=== PATIENT | male | born 1945 | race Caucasian/White ===

== ENCOUNTER 2024-03-26 12:37 | Observation (INO) ==
--- NOTE | 2024-03-26 13:15 | Emergency Department Note ---
HPI - Dizziness General Chief Complaint: Dizziness Stated Complaint: DIZZY, FALL Time Seen by Provider: 03/26/24 12:59 Source: patient and family Mode of arrival: walk-in Limitations: no limitations History of Present Illness HPI Narrative: This is a 78 year old male patient that presents to the ER with c/o feeling room spinning dizzy since yesterday. Patient states movement makes the dizziness worse. Patient denies any chest pain, SOB, abdominal pain, back pain, fever, chills, numbness,tingling, weakness or N/V. patient states he fell yesterday from the dizziness and his neck has been painful since. MD elicited complaint: Reports dizziness Onset (ago): hour(s) (24) Exacerbating factors: Reports movement/ambulation Relieving factors: Reports remaining still Associated symptoms: Reports denies other symptoms Related Data Home Medications Medication Instructions Recorded Confirmed losartan 50 mg tablet 50 mg PO DAILY 03/26/24 03/26/24 Allergies Allergy/AdvReac Type Severity Reaction Status Date / Time No Known Drug Allergies Allergy Verified 03/26/24 13:00 Review of Systems Status of ROS 10 or more systems reviewed and unremark able except as noted in history and below Constitutional Denies: fever, chills, change in weight, fatigue, malaise or night sweats Eyes Denies: change in vision, blurry vision, blind spots or light sensitivity Ears, nose, mouth, and throat Denies: throat pain, neck pain, throat swelling, difficulty swallowing or hoarseness Cardiovascular Reports: lightheadedness; Denies: chest pain, palpitations, edema, swelling of feet/ankles, shortness of breath when lying down or leg pain with exertion Respiratory Denies: shortness of breath, cough, wheezing, stridor or pain on inspiration Gastrointestinal Denies: abdominal pain, nausea, vomiting, coffee grounds in vomit, heartburn or diarrhea Genitourinary Denies: painful urination, urinary frequency, urinary urgency, blood in urine or genital pain Musculoskeletal Reports: neck pain; Denies: back pain, extremity pain, extremity swelling or joint pain Integumentary/Breast Denies: rash, itching, redness, skin pain, skin tenderness or skin swelling Neurological Reports: dizziness and vertigo; Denies: headache, numbness in extremities, weakness in extremities, lack of coordination, confusion, behavioral changes, slurred speech or difficulty communicating thoughts Psychiatric Denies: anxiety, mood swings, panic attacks or change in sleep pattern Endocrine Denies: excessive urination, excessive thirst, fatigue or cold intolerance Hematologic/Lymphatic Denies: easy bruising or easy bleeding Allergic/Immunologic Denies: hives, throat swelling, tongue swelling or facial swelling [facility] Medical History (Updated 03/26/24 @ 13:04 by Beverly Hernandez RN) BPH (benign prostatic hyperplasia) HTN (hypertension) Surgical History (Updated 03/26/24 @ 13:04 by Beverly Hernandez RN) 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 Non-prescribed substance use: denies use Exam Constitutional: normal general appearance and no apparent distress Vital Signs - 24 hr 03/26/24 12:50 03/26/24 13:10 03/26/24 13:13 Temperature 98.6 F Pulse Rate 58 L 68 65 Respiratory Rate 16 Blood Pressure 142/76 169/96 181/89 Pulse Oximetry 94 L Oxygen Delivery Me thod Room Air 03/26/24 13:16 03/26/24 15:30 Temperature Pulse Rate 71 60 Respiratory Rate 16 Blood Pressure 178/87 180/80 Pulse Oximetry 97 Oxygen Delivery Me thod Room Air HENMT: normocephalic, head/scalp atraumatic, hearing grossly normal bilaterally, external ears normal, nasal mucous membranes normal, external nose normal, oral mucous membranes normal and oropharynx normal Eyes: PERRL, EOMs intact bilaterally, conjunctivae normal and no scleral icterus Neck/C-Spine: visual inspection normal, trachea midline, cervical spine tenderness noted, cervical full ROM noted, supple, no meningeal signs and thyroid normal soft tissue tenderness posterior neck Lymph: no lymphadenopathy noted Chest: inspection of chest normal Respiratory: breath sounds equal bilaterally, normal respiratory effort, clear to auscultation bilaterally, no wheezes, no rales, no retractions and no use of accessory muscles Cardiovascular: normal heart rate noted, regular rhythm noted, no gallop, no rub, no murmur, no JVD, no clicks, peripheral pulses 2+ throughout and no additional abnormal heart sounds Gastrointestinal: abdomen normal to inspection, abdomen soft to palpation, nontender to palpation, nontender to percussion, nondistended, normoactive bowel sounds, no hepatosplenomegaly, no masses, no pulsatile mass and no hernia Genitourinary: no CVA tenderness Back/Pelvis: spine normal to inspection Extremities: normal to inspection, normal to palpation, no tenderness, full ROM, no joint enlargement and no deformity Neurology: 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 VSS , no s/s of acute distress noted Vital Signs Vital signs: Vital Signs Temperature 98.6 F 03/26/24 12:50 Pulse Rate 58 L 03/26/24 12:50 Respiratory Rate 16 03/26/24 12:50 Blood Pressure 142/76 03/26/24 12:50 Pulse Oximetry 94 L 03/26/24 12:50 Oxygen Delivery Method Room Air 03/26/24 12:50 Temperature 98.6 F 03/26/24 12:50 Pulse Rate 60 03/26/24 15:30 Respiratory Rate 16 03/26/24 15:30 Blood Pressure 180/80 03/26/24 15:30 Pulse Oximetry 97 03/26/24 15:30 Oxygen Delivery Method Room Air 03/26/24 15:30 Discharge Plan Discharge Patient Disposition: Admitted As Observation Condition: Stable Chief Complaint: Dizziness Clinical Impression: Elevated troponin, Vertigo, Benign essential HTN Prescriptions: No Action losartan 50 mg tablet 50 mg PO DAILY Print Language: Sammarinese Referrals: Aggie Salcedo DO [Primary Care Provider] - Time of Disposition: 15:49
[2024-03-26 13:28] LABS: Basophils #(Absolute) Auto 0.1 (0.0-0.1); Eosinophils#(Absolute)Auto 0.1 (0.0-0.3); Eosinophils%(Percent) Auto 1.6 % (0.0-4.0); Granulocytes % - Auto 68.8 % (49.1-73.1); Granulocytes#(Absolute)- Auto 4.3 (2.0-6.2); Hematocrit 46.9 % (41.3-50.1); Mean Corpuscular Volume 89.3 fl (81.9-96.5); Monocytes #(Absolute)- Auto 0.4 (0.2-0.8); Monocytes %(Percent)- Auto 6.6 % (4.5-10.7); Platelet Count 145 K/uL (142-355); White Blood Count 6.2 K/uL (3.7-9.6)
[2024-03-26 13:36] LABS: Potassium 3.8 mmol/L (3.6-5.2)
[2024-03-26 15:36] LABS: PH BODY FLUID EXCP BLOOD 6.5 (5 - 9); Urine Appearance CLEAR (CLEAR); Urine Blood NEGATIVE (NEG - TRACE); Urine Color YELLOW (STRAW/YELL.); Urine Urobilinogen Normal (NORMAL)
[2024-03-26] MEDS ORDERED: ASPIRIN 81 MG TAB.CHEW ONE (15:55)
[2024-03-26] MEDS: CLOPIDOGREL BISULFATE 75 MG TABLET PO ONE (15:56)
[2024-03-26] MEDS: ASPIRIN 81 MG TAB.CHEW PO ONE (15:57)
[2024-03-26] MEDS ORDERED: ASPIRIN 325 MG TABLET ONE (15:57)
[2024-03-26] MEDS ORDERED: ACETAMINOPHEN 325 MG TABLET PO PRN (17:08)
[2024-03-27] MEDS: HYDRALAZINE HCL 20 MG/ML VIAL IVP PRN (00:18)
[2024-03-27 03:46] VITALS: RESP 19
[2024-03-27 04:39] LABS: Basophils #(Absolute) Auto 0.1 (0.0-0.1); Basophils%(Percent) Auto 0.8 (0.0-1.3); Eosinophils#(Absolute)Auto 0.1 (0.0-0.3); Eosinophils%(Percent) Auto 2.3 % (0.0-4.0); Granulocytes % - Auto 70.1 % (49.1-73.1); Granulocytes#(Absolute)- Auto 4.6 (2.0-6.2); Hematocrit 45.7 % (41.3-50.1); Mean Corpuscular Volume 88.2 fl (81.9-96.5); Monocytes #(Absolute)- Auto 0.5 (0.2-0.8); Monocytes %(Percent)- Auto 7.3 % (4.5-10.7); Platelet Count 128 K/uL (142-355); White Blood Count 6.5 K/uL (3.7-9.6)
[2024-03-27 04:44] LABS: INR 1.01
[2024-03-27 04:47] LABS: Potassium 3.3 mmol/L (3.6-5.2)
[2024-03-27] MEDS: LOSARTAN POTASSIUM 50 MG TABLET PO SCH (10:27)
[2024-03-27] MEDS: PANTOPRAZOLE SODIUM 40 MG TABLET.DR PO ONE (10:27)
[2024-03-27] MEDS: POTASSIUM CHLORIDE 20 MEQ TAB.ER.PRT PO ONE (11:45)
[2024-03-27 11:58] VITALS: BP 147/81; PULSE 66; TEMP 98.6
--- NOTE | 2024-03-27 13:28 | Short Stay Summary ---
H&P: HPI History of Present Illness Chief complaint: DIZZY, FALL Narrative: This is a 78 year old male patient that presents to the ER with c/o feeling room spinning dizzy since yesterday when he goes to stand and has fallen x1 on butt with standing and dizziness. Patient states movement makes the dizziness occ ur.. Patient denies any chest pain, SOB, abdominal pain, back pain, fever, chills, numbness,tingling, weakness or N/V. patient states he fell yesterday from the dizziness and his neck has been painful since. Review of Systems Status of ROS 10 or more systems reviewed and unremark able except as noted in history and below Constitutional Denies: fever, chills, change in weight, fatigue, malaise or night sweats Eyes Denies: change in vision, blurry vision, blind spots or light sensitivity Ears, nose, mouth, and throat Reports: neck pain and vertigo; Denies: throat pain, throat swelling, difficulty swallowing or hoarseness Cardiovascular Reports: lightheadedness; Denies: chest pain, palpitations, edema, swelling of feet/ankles, shortness of breath with exertion, shortness of breath when lying down or leg pain with exertion Respiratory Denies: shortness of breath, cough, wheezing, stridor or pain on inspiration Gastrointestinal Denies: abdominal pain, nausea, vomiting, coffee grounds in vomit, heartburn, diarrhea or difficulty swallowing Genitourinary Denies: painful urination, urinary frequency, urinary urgency, blood in urine or genital pain Musculoskeletal Reports: neck pain; Denies: back pain, extremity pain, extremity swelling or joint pain Integumentary/Breast Denies: rash, itching, redness, skin pain, skin tenderness or skin swelling Neurological Reports: dizziness and vertigo; Denies: headache, numbness in extremities, weakness in extremities, lack of coordination, confusion, behavioral changes, slurred speech or difficulty communicating thoughts Psychiatric Denies: anxiety, mood swings, panic attacks or change in sleep pattern Endocrine Denies: excessive urination, excessive thirst, fatigue or cold intolerance Hematologic/Lymphatic Denies: easy bruising or easy bleeding Allergic/Immunologic Denies: hives, throat swelling, tongue swelling, facial swelling or wheezing [facility] Medical History (Updated 03/27/24 @ 13:18 by Aggie Salcedo DO) Noncompliance with medication regimen Cervical spondylosis with radiculopathy Pulmonary hypertension BPH (benign prostatic hyperplasia) HTN (hypertension) Surgical History 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 Non-prescribed substance use: denies use Problems where you live: no known problems Highest level of school completed/degree received: high school Feel stressed/tense/nervous/anxious/difficulty sleeping: not at all Due to disability, difficulty making decisions: No Meds Home Medications and Allergies Home Medications Medication Instructions Recorded Confirmed Type losartan 50 mg tablet 50 mg PO DAILY 03/26/24 03/26/24 History meclizine 25 mg tablet 25 mg PO QID PRN dizziness #30 tabs 03/27/24 Rx Allergies Allergy/AdvReac Type Severity Reaction Status Date / Time No Known Drug Allergies Allergy Verified 03/26/24 13:00 Exam Constitutional: abnormal general appearance (disheveled), no apparent distress, average body habitus, limitations noted (physical limitations) and alert Vital Signs - 24 hr 03/26/24 13:10 03/26/24 13:13 03/26/24 13:16 Temperature Pulse Rate 68 65 71 Pulse Rate [Left] Respiratory Rate Blood Pressure 169/96 181/89 178/87 Blood Pressure [Ri ght Radial Artery] Pulse Oximetry Oxygen Delivery Me thod Fraction of Inspir ed Oxygen 03/26/24 13:30 03/26/24 14:30 03/26/24 15:30 Temperature Pulse Rate 67 67 60 Pulse Rate [Left] Respiratory Rate 16 16 16 Blood Pressure 166/77 177/84 180/80 Blood Pressure [Ri ght Radial Artery] Pulse Oximetry 97 97 97 Oxygen Delivery Me thod Room Air Room Air Room Air Fraction of Inspir ed Oxygen 03/26/24 16:00 03/26/24 16:29 03/26/24 17:04 Temperature Pulse Rate 61 59 L 59 L Pulse Rate [Left] Respiratory Rate 16 16 16 Blood Pressure 175/84 169/84 169/84 Blood Pressure [Ri ght Radial Artery] Pulse Oximetry 97 96 96 Oxygen Delivery Me thod Room Air Room Air Fraction of Inspir ed Oxygen 03/26/24 17:10 03/26/24 19:44 03/26/24 23:34 Temperature 98.2 F 98.3 F Pulse Rate Pulse Rate [Left] 58 L 78 76 Respiratory Rate 18 18 16 Blood Pressure Blood Pressure [Ri ght Radial Artery] 163/82 175/86 Pulse Oximetry 97 97 98 Oxygen Delivery Me thod Room Air Room Air Room Air Fraction of Inspir ed Oxygen 03/27/24 00:18 03/27/24 03:41 03/27/24 03:45 Temperature 98.7 F Pulse Rate Pulse Rate [Left] 78 Respiratory Rate 19 Blood Pressure 175/86 161/89 Blood Pressure [Ri ght Radial Artery] 161/89 Pulse Oximetry 93 L Oxygen Delivery Me thod Room Air Fraction of Inspir ed Oxygen 03/27/24 08:00 03/27/24 09:09 03/27/24 09:16 Temperature 98.4 F Pulse Rate 84 Pulse Rate [Left] 67 Respiratory Rate 19 Blood Pressure 155/85 Blood Pressure [Ri ght Radial Artery] 157/78 Pulse Oximetry 97 95 Oxygen Delivery Me thod Room Air Room Air Fraction of Inspir ed Oxygen 21 03/27/24 10:27 03/27/24 10:48 03/27/24 11:30 Temperature Pulse Rate 74 80 Pulse Rate [Left] Respiratory Rate Blood Pressure 157/78 171/72 159/81 Blood Pressure [Ri ght Radial Artery] Pulse Oximetry Oxygen Delivery Me thod Fraction of Inspir ed Oxygen 03/27/24 11:57 Temperature 98.6 F Pulse Rate Pulse Rate [Left] 66 Respiratory Rate 19 Blood Pressure Blood Pressure [Ri ght Radial Artery] 147/81 Pulse Oximetry 97 Oxygen Delivery Me thod Room Air Fraction of Inspir ed Oxygen HENMT: normocephalic, head/scalp atraumatic, hearing grossly normal bilaterally, external ears normal, TMs abnormal (bulging) and (fluid behind TM), nasal mucous membranes normal, external nose normal, oral mucous membranes normal, oropharynx normal and gingiva normal Eyes: PERRL, EOMs intact bilaterally, conjunctivae normal, no scleral icterus and papilledema noted Neck/C-Spine: visual inspection normal, trachea midline, cervical spine nontender, abnormal cervical ROM noted, supple, no meningeal signs, thyroid normal and no carotid bruits soft tissue tenderness posterior neck Lymph: no lymphadenopathy noted and no lymphedema noted Chest: inspection of chest normal and palpation of chest normal Respiratory: breath sounds equal bilaterally, normal respiratory effort, clear to auscultation bilaterally, no wheezes, no rales, no retractions, no use of accessory muscles and chest percussion normal Cardiovascular: normal heart rate noted, regular rhythm noted, no gallop, no rub, no murmur, no JVD, no clicks, peripheral pulses 2+ throughout, no bruits noted and no additional abnormal heart sounds Gastrointestinal: abdomen normal to inspection, abdomen soft to palpation, nontender to palpation, nontender to percussion, nondistended, normoactive bowel sounds, no hepatosplenomegaly, no masses, no pulsatile mass, no ascites and no hernia Genitourinary: no CVA tenderness, bladder normal to palpation and external appearance normal Back/Pelvis: no thoracic spine tenderness, no lumbar spine tenderness, thoracic spine ROM abnormal and lumbar spine ROM abnormal Extremities: normal to inspection, normal to palpation, no tenderness, full ROM, no joint enlargement and no deformity Neurology: 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, no movement abnormality noted, no focal motor deficit noted, no sensory deficits noted, deep tendon reflexes 2+ bilaterally, gait normal, speech normal, coordination normal, no pronator drift noted, no fasciculations noted and GCS normal Psychiatry: Mental Status Exam documented within this Exam's Psych section mental status grossly normal, oriented x3, thought process normal, cooperative, affect abnormality noted (flat), psychomotor activity normal and memory normal Feel stressed/tense/nervous/anxious/difficulty sleeping: not at all Due to disability, difficulty making decisions: No Skin: skin color normal, no rash, no lesions, no ecchymosis noted, no wounds, no lacerations, skin turgor normal, no jaundice, no petechiae, no mottling, nails normal and no alopecia Assessment and Plan Assessment and Plan (1) Labyrinthitis of both ears: Code(s): H83.03 - Labyrinthitis, bilateral (2) Orthostatic dizziness: Code(s): R42 - Dizziness and giddiness (3) HTN (hypertension): Qualifiers: Hypertension type: primary hypertension Qualified Code(s): I10 - Essential (primary) hypertension Code(s): I10 - Essential (primary) hypertension (4) Pulmonary hypertension: Code(s): I27.20 - Pulmonary hypertension, unspecified (5) Cervical spondylosis with radiculopathy: Code(s): M47.22 - Other spondylosis with radiculopathy, cervical region (6) Noncompliance with medication regimen: Code(s): Z91.148 - Patient's other noncompliance with medication regimen for other reason Plan admit observation hospital with cardiac monitoring and rule out Physical and occupational therapy evaluation for falls and dizziness orthostatics on admit and in the am resume home BP medication Fe maneuver and outpatient rehab recommendations education on standing slowly BP Journal to take to PCP follow up in 4-5 days please needs to increase his water and discuss meds with his PCP and he declines aspirin at this time as he has concerns for falls and aspirin as per our conversation today needs ECHO and carotids as an out patient and follow up no experience Results Labs Labs: CBC WBC 6.5 K/uL (3.7-9.6) 03/27/24 03:45 RBC 5.2 M/uL (4.40-5.80) 03/27/24 03:45 Hgb 16.2 gm/dL (14.0-17.4) 03/27/24 03:45 Hct 45.7 % (41.3-50.1) 03/27/24 03:45 MCV 88.2 fl (81.9-96.5) 03/27/24 03:45 MCH 31.2 pg (27.6-33.7) 03/27/24 03:45 MCHC 35.4 g/dl (33.0-35.7) 03/27/24 03:45 RDW 13.9 % (11.0-14.8) 03/27/24 03:45 Plt Count 128 K/uL (142-355) L 03/27/24 03:45 MPV 7.8 fl (6.0-10.4) 03/27/24 03:45 Gran % 70.1 % (49.1-73.1) 03/27/24 03:45 Lymph % (Auto) 19.5 % (17.6-39.05) 03/27/24 03:45 [place] % (Auto) 7.3 % (4.5-10.7) 03/27/24 03:45 Eos % (Auto) 2.3 % (0.0-4.0) 03/27/24 03:45 Baso % (Auto) 0.8 (0.0-1.3) 03/27/24 03:45 Lymph # (Auto) 1.3 (0.8-2.9) 03/27/24 03:45 [place] # (Auto) 0.5 (0.2-0.8) 03/27/24 03:45 Eos # (Auto) 0.1 (0.0-0.3) 03/27/24 03:45 Baso # (Auto) 0.1 (0.0-0.1) 03/27/24 03:45 Absolute Gran (auto) 4.6 (2.0-6.2) 03/27/24 03:45 BMP Sodium 141 mmol/L (136-145) 03/27/24 03:45 Potassium 3.3 mmol/L (3.6-5.2) L 03/27/24 03:45 Chloride 104.0 mmol/L (98-107) 03/27/24 03:45 Carbon Dioxide 29 mmol/L (21-32) 03/27/24 03:45 Anion Gap 8.0 mEq/L (4-14) 03/27/24 03:45 BUN 12 mg/dL (7-18) 03/27/24 03:45 Creatinine 1.0 mg/dL (0.6-1.3) 03/27/24 03:45 Estimated GFR 77.5 (>59.9) 03/27/24 03:45 Glucose 124 mg/dL (70-110) H 03/27/24 03:45 Calcium 8.9 mg/dL (8.5-10.1) 03/27/24 03:45 Total Bilirubin 1.06 mg/dL (0.0-1.0) H 03/27/24 03:45 AST 15 U/L (15-37) 03/27/24 03:45 ALT 19 U/L (30-65) L 03/27/24 03:45 Alkaline Phosphatase 70 U/L (50-136) 03/27/24 03:45 Total Protein 6.6 g/dL (6.4-8.2) 03/27/24 03:45 Albumin 3.3 g/dL (3.4-5.0) L 03/27/24 03:45 Cardiac Enzymes Troponin I High Sens 142.50 ng/L (4.0-60.4) H* 03/27/24 03:45 Liver Function Total Bilirubin 1.06 mg/dL (0.0-1.0) H 03/27/24 03:45 AST 15 U/L (15-37) 03/27/24 03:45 ALT 19 U/L (30-65) L 03/27/24 03:45 Alkaline Phosphatase 70 U/L (50-136) 03/27/24 03:45 Total Protein 6.6 g/dL (6.4-8.2) 03/27/24 03:45 Albumin 3.3 g/dL (3.4-5.0) L 03/27/24 03:45 Urine Urine Color Yellow (STRAW/YELL.) 03/26/24 13:20 Urine Appearance Clear (CLEAR) 03/26/24 13:20 Ur Specific [place] 1.010 (1.001-1.035) 03/26/24 13:20 Urine Protein Negative (NEGATIVE) 03/26/24 13:20 Urine Glucose (UA) Normal (NORMAL) 03/26/24 13:20 Urine Ketones Negative (NEGATIVE) 03/26/24 13:20 Urine Occult Blood Negative (NEG - TRACE) 03/26/24 13:20 Urine Nitrite Negative (NEGATIVE) 03/26/24 13:20 Urine Bilirubin Negative (NEGATIVE) 03/26/24 13:20 Urine Urobilinogen Normal (NORMAL) 03/26/24 13:20 Ur Leukocyte Esterase Negative (NEGATIVE) 03/26/24 13:20 ECG Attestation: I have reviewed the pertinent ECG results. Prior ECG tracings: available for review Imaging Imaging ordered: Chest x-ray, CT scan - head and other (ct neck) Radiologist's impression: CT CERVICAL SPINE WO CON HISTORY: painpain; COMPARISON: None. TECHNIQUE: Contiguous noncontrast axial CT images cervical spine. Images reviewed in the axial imaging plane with reformatted sagittal and coronal images.The above CT scan was done with automated exposure control and the mA and kV was adjusted to obtain quality images according to patient size. FINDINGS: The cervical vertebral bodies maintain normal height and alignment. No evidence of a displaced fracture or subluxation. Precervical soft tissue outlines appear normal. Multilevel degenerative changes with disc space narrowing, vertebral endplate osteophytes, posterior disc/osteophyte complexes encroaching on the central spinal canal, narrowing of the uncovertebral joints. IMPRESSION: Cervical spondylosis. Consider follow-up MRI of the cervical spine if there is clinical concern for new onset of persistent neck pain and/or radiculopathy. CT HEAD/BRAIN WO CON HISTORY: near syncopenear syncope; COMPARISON: CT brain 05/03/2023 TECHNIQUE: Contiguous noncontrast axial CT images of the brain. Images reviewed in the axial imaging plane with reformatted sagittal and coronal images.The above CT scan was done with automated exposure control and the mA and kV was adjusted to obtain quality images according to patient size. FINDINGS: No evidence of acute intracranial hemorrhage, mass effect, or midline shift. Moderate diffuse brain parenchyma atrophy. Generalized decreased density to the deep white matter adjacent to the lateral ventricles and centrum semiovale regions bilaterally without associated mass effect. Consider chronic ischemic white matter changes from small vessel disease or other cause of gliosis. The calvarium appears intact. IMPRESSION: No acute intracranial hemorrhage or mass effect. Chronic appearing brain parenchymal changes as described above. Chest pain COMPARISON: 05/03/2023 FINDINGS: Heart size is normal. [place] are normal. Lungs are free of acute infiltrates. Left hemidiaphragm is elevated. Patient is status post left partial pneumonectomy. Blunting of the left costophrenic angle is chronic and likely due to fibrosis although small pleural effusion not entirely excluded. Bony thorax is unremarkable. 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 No acute infiltrates DS: Providers Provider Date of admission: 03/26/24 16:06 Primary care physician: Aggie Salcedo DO Admitting clinician: Preethi Dukes Attending physician on admission: Juan Garcia Consults: 03/27/24 09:13 Consult to Physical Therapy Routine Comment: Consulting Provider: Reason for consultation: weakness,recent fall Physician Instructions: evaluate 03/27/24 09:15 Consult to Occupational Therapy Routine Comment: Consulting Provider: Reason for consultation: weakness,recent fall Physician Instructions: evaluate Attending physician on discharge: Aggie Salcedo Discharging clinician: Aggie Salcedo Anticipated date of discharge: 03/27/24 DS: Summary Hospital Course Hospital Course: 1548: Due to elevated troponin and dizziness will admit patient to the hospital for further evaluation and treatment. VSS , no s/s of acute distress noted patients trops were negative x 3, orthostatics were positive even after Physical therapy worked with the patient and systolic went from 171 lying to 155 standing although heart rate stable lying at 74 to 84 standing. patient states only lasts a few seconds now where as before physical therapy dizziness and unstable stance and walking would last for a few to several minutes. patient will not skip his losartan any more unless no experience or his PCP tells him to do so ordered per pharmacy 50 mg po daily but patient states he is taking 50 mg in the am and 25 mg at bedtime for the last 3-4 weeks except when he stopped his medicine for the previous 4 days as he thought it was making him dizzy and unstable/weak stance. Status at Discharge Functional status at discharge: independent ambulation Overall status at discharge: patient is progressing back to baseline Time Spent with Patient Time attestation: Total time spent providing and/or coordinating discharge services: Time spent: greater than 30 minutes Discharge Plan Discharge Disposition: Home, Self-Care Condition: Improved Discharge Medications: New meclizine 25 mg tablet 25 mg PO QID PRN (Reason: dizziness) Qty: 30 0RF Continued losartan 50 mg tablet 50 mg PO DAILY Discharge Orders: Discharge Order (Routine); Ordered 03/27/24 Ordered By: Aggie Salcedo Activity: as per physical therapy Diet: low fat, low cholesterol Interventions: MED/SURG & ICU Observation Charge Sheet Last Done: 03/27/24 05:58 Activity Restrictions/Additional Instructions: resume home BP medication Fe maneuver and outpatient rehab recommendations education on standing slowly BP Journal to take to PCP follow up in 4-5 days please improve water intake needs ECHO, carotids as an outpatient Forms: Portal/Health Info Access Inst Follow-Ups: Aggie Salcedo DO [Primary Care Provider] - 04/04/24 10:15 am
== END 2024-03-27 14:07 | disposition home or self-care (01) ==
LOC: ED 12:37 → MS 12:37
PROVIDERS: ADMIT Family Medicine; ATTEND Family Medicine
DX: W19.XXXA Unspecified fall, initial encounter; Y92.89 Other specified places as the place of occurrence of the external cause; Y93.89 Activity, other specified; I27.20 Pulmonary hypertension, unspecified; Z91.148 Patient's other noncompliance with medication regimen for other reason; R07.89 Other chest pain; H83.03 Labyrinthitis, bilateral; M54.2 Cervicalgia; R79.89 Other specified abnormal findings of blood chemistry; I10 Essential (primary) hypertension; R42 Dizziness and giddiness; M47.22 Other spondylosis with radiculopathy, cervical region